=== PATIENT | female | born 1980 | race Caucasian/White ===

== ENCOUNTER 2020-03-29 13:00 | Emergency (ER) | payer OTHER ==
[~2020-03-29] VITALS: Ht 170.2 cm; Wt 159.0 kg
[2020-03-29 13:12] VITALS: BP 149/67
[2020-03-29] MEDS ORDERED: SURGICEL HEMOSTAT 4X8 EACH. TP ONE (13:15)
[2020-03-29] MEDS ORDERED: HYDROcodone/APAP 5/325MG 1 TAB TABLET PO ONE (13:15)
--- NOTE | 2020-03-29 13:20 | PHYS DOC ---
General Adult EDM: Chief Complaint: FINGER INJURY HPI: HPI: Patient is a 40 year old female who presents with was using a mandolin cutting some vegetables and sliced off approximately the first 1 to 2 cm of the tip of the left middle finger. It is a clean slice without any flap of skin. Patient states she does need a tetanus. This happened right before coming to the emergency room. She rates her sharp throbbing pain a 10 out of 10. Bleeding is controlled at this time. Review of Systems: Review of Systems: Constitutional: Denies fever or chills. [] Eyes: Denies change in visual acuity. [] HENT: Denies nasal congestion or sore throat. [] Respiratory: Denies cough or shortness of breath. [] Cardiovascular: Denies chest pain or edema. [] GI: Denies abdominal pain, nausea, vomiting, bloody stools or diarrhea. [] : Denies dysuria. [] Musculoskeletal: Denies back pain or joint pain. +Left middle finger tip laceration. [] Integument: Denies rash. +Left finger tip laceration. [] Neurologic: Denies headache, focal weakness or sensory changes. [] Endocrine: Denies polyuria or polydipsia. [] Lymphatic: Denies swollen glands. [] Psychiatric: Denies depression or anxiety. [] Heart Score: Risk Factors: Risk Factors: DM, Current or recent (<one month) smoker, HTN, HLP, family history of CAD, obesity. Risk Scores: Score 0 - 3: 2.5% MACE over next 6 weeks - Discharge Home Score 4 - 6: 20.3% MACE over next 6 weeks - Admit for Clinical Observation Score 7 - 10: 72.7% MACE over next 6 weeks - Early Invasive Strategies Physical Exam: PE: Constitutional: Well developed, well nourished, no acute distress, non-toxic appearance. [] HENT: Normocephalic, atraumatic, bilateral external ears normal, oropharynx moist, no oral exudates, nose normal. [] Eyes: PERRLA, EOMI, conjunctiva normal, no discharge. [] Neck: Normal range of motion, no tenderness, supple, no stridor. [] Cardiovascular:Heart rate regular rhythm, no murmur [] Lungs & Thorax: Bilateral breath sounds clear to auscultation [] Abdomen: Bowel sounds normal, soft, no tenderness, no masses, no pulsatile masses. [] Skin: Warm, dry, no erythema, no rash. Left 2cm of middle finger tip is sliced off.[] Back: No tenderness, no CVA tenderness. [] Extremities: Left tip of finger tenderness, no cyanosis, no clubbing, ROM intact, no edema. [] Neurologic: Alert and oriented X 3, normal motor function, normal sensory function, no focal deficits noted. [] Psychologic: Affect normal, judgement normal, mood normal. [] EKG: EKG: [] Radiology/Procedures: Radiology/Procedures: [] Impression: [facility] [address] [place] [address] IMAGING REPORT Signed PATIENT: MARI COMER ACCOUNT: [id number] : 1980 LOCATION: ER AGE: 40 SEX: F EXAM STATUS: REG ER ORD. PHYSICIAN: JEANIE HUIZAR APRN REASON: cut off tip of 3rd finger PROCEDURE: HAND LEFT 3V XR HAND_LEFT 3 VIEWS DATE: 03/29/2020 1:17 PM INDICATION: Reason: cut off tip of 3rd finger / Spl. Instructions: / History: COMPARISON: None. FINDINGS: Bones: There is no evidence of acute fracture or dislocation. Joints: The joint spaces are normal. Miscellaneous: No radiopaque foreign bodies. Traumatic amputation of the third digit distal tip soft tissues. IMPRESSION: Tip of the third digit soft tissue injury. No acute fracture. No radiopaque foreign body. Electronically signed by: Marge Vazquez MD (03/29/2020 1:57 PM) [id number] DICTATED and SIGNED BY: MARGE VAZQUEZ MD DATE: 03/29/20 [id number] 0 Course & Med Decision Making: Course & Med Decision Making Pertinent Labs and Imaging studies reviewed. (See chart for details) See HPI. Alert and oriented x4. Speaks in full complete sentences. Ambulatory with a steady gait. Patient can bend the finger and there is no joint damage or deformity. The blade did go clean through the nailbed tip. Radial pulse strong present. Skin is pink warm and dry. Cap refill less than 2 seconds. Patient is given hydrocodone in the ED. Wound is cleaned with saline and chlorhexidine. Surgicel was placed over wound. Bleeding has stopped. I have wrapped the finger in gauze and Mic wrapping. I have also wrote her for pain medication and antibiotic. I have given her the phone number for hand surgery at . [] Buck Disclaimer: Buck Disclaimer: This electronic medical record was generated, in whole or in part, using a voice recognition dictation system. Departure Departure Impression: Primary Impression: Finger avulsion Qualified Codes: S61.209A - Unspecified open wound of unspecified finger without damage to nail, initial encounter Disposition: 01 DC HOME SELF CARE/HOMELESS Condition: STABLE Patient Instructions: Finger Avulsion Additional Instructions: Follow-up with hand surgery at [phone] call on Thursday for an appointment. Keep the Surgicel on for the next 24 hours. Keep clean and covered. Scripts Hydrocodone/Apap 5-325 (NORCO 5-325 TABLET) 1 Each Tablet 1 TAB PO PRN Q6HRS PRN for PAIN, #10 TAB 0 Refills Prov: JEANEI HUIZAR APRN 03/29/20 Cephalexin (KEFLEX) 500 Mg Capsule 1 CAP PO TID for 7 Days, #21 CAP 0 Refills Prov: JEANIE HUIZAR [employer] 03/29/20 JEANIE HUIZAR APRN Mar 29, 2020 13:20
[2020-03-29] MEDS ORDERED: DIPH,PERTUSS(ACELL),TET VAC/PF 0.5 ML SYRINGE. VAX IM ONE (13:30)
--- NOTE | 2020-03-29 14:00 | RAD ---
XR HAND_LEFT 3 VIEWS DATE: 03/29/2020 1:17 PM INDICATION: Reason: cut off tip of 3rd finger / Spl. Instructions: / History: COMPARISON: None. FINDINGS: Bones: There is no evidence of acute fracture or dislocation. Joints: The joint spaces are normal. Miscellaneous: No radiopaque foreign bodies. Traumatic amputation of the third digit distal tip soft tissues. IMPRESSION: Tip of the third digit soft tissue injury. No acute fracture. No radiopaque foreign body. Electronically signed by: Carlos Eduardo Hamilton MD (03/29/2020 1:57 PM) [id number]
[2020-03-29] MEDS ORDERED: CEPH-264 PO (14:15)
[2020-03-29] MEDS ORDERED: HYDR-3164 PO (14:15)
== END 2020-03-29 14:46 | disposition home or self-care (01) ==
LOC: ER 13:00
DX: S61.313A Laceration without foreign body of left middle finger with damage to nail, initial encounter (principal); W26.8XXA Contact with other sharp object(s), not elsewhere classified, initial encounter; Y93.89 Activity, other specified; Y92.89 Other specified places as the place of occurrence of the external cause; Y99.8 Other external cause status
CPT/HCPCS: 12011; 73130; 90471; 90715; 99283